=== PATIENT | male | born 1975 | race Caucasian/White ===

== ENCOUNTER 2017-05-10 07:15 | Emergency (ER) | payer OTHER ==
[2017-05-10 07:29] VITALS: BP 122/66
--- NOTE | 2017-05-10 07:47 | UC ---
FLU HPI - HPI Summary HPI Summary: ONSET LAST NIGHT OF CHILLS, SUBJECTIVE FEVER, ACHINESS, MALAISE, MILD COUGH. NO FLU SHOT THIS SEASON. NO ST, EAR PAIN, N/V/D. MULTIPLE FAMILY MEMBERS WITH STREP. - History of Current Complaint Chief Complaint: UCGeneralIllness Stated Complaint: CHILLS, FEVER Time Seen by Provider: 05/10/17 07:32 Hx Obtained From: Patient Onset/Duration: Gradual Onset, Lasting Days - 1 day Pain Intensity: 0 Pain Scale Used: 0-10 Numeric Associated Signs & Symptoms: Positive: Fever, Myalgia, Cough, Headache - Allergy/Home Medications Allergies/Adverse Reactions: Allergies Allergy/AdvReac Type Severity Reaction Status Date / Time No Known Allergies Allergy Verified 08/04/15 14:13 PMH/Surg Hx/FS Hx/Imm Hx Previously Healthy: Yes - Surgical History Surgical History: Yes Surgery Procedure, Year, and Place: LEFT SHOULDER REPAIR 2006,-ACL RECONSTRUCTION RIGHT KNEE 08/2014,-TUBES CHILD - Family History Known Family History: Negative: Cardiac Disease, Hypertension, Diabetes - Social History Alcohol Use: Occasionally Alcohol Amount: 1 BEER A MONTH Substance Use Type: None Smoking Status (MU): Never Smoked Tobacco - Immunization History Most Recent Influenza Vaccination: NOT IN THE PAST FEW YEARS Most Recent Tetanus Shot: UTD Review of Systems Constitutional: Fever, Chills, Fatigue Respiratory: Cough Cardiovascular: Negative Gastrointestinal: Negative Musculoskeletal: Myalgia Neurological: Headache All Other Systems Reviewed And Are Negative: Yes Physical Exam Triage Information Reviewed: Yes Appearance: Well-Appearing, No Pain Distress, Well-Nourished Vital Signs: Initial Vital Signs Temp 97.6 F 05/10/17 07:23 Pulse 76 05/10/17 07:23 Resp 16 05/10/17 07:23 BP 122/66 05/10/17 07:23 Pulse Ox 99 05/10/17 07:23 Vital Signs Reviewed: Yes Eyes: Positive: Conjunctiva Clear ENT: Positive: Hearing grossly normal, Pharynx normal, TMs normal, Other - RIGHT EAC IMPACTED WITH CERUMEN Neck: Positive: Supple, Nontender, No Lymphadenopathy Respiratory Exam: Normal Cardiovascular Exam: Normal Abdomen Description: Positive: Soft Musculoskeletal: Positive: No Edema Neurological: Positive: Alert Psychological: Positive: Age Appropriate Behavior Skin: Negative: rashes Diagnostics - Laboratory Diagnostic Studies Completed/Ordered: RAPID STREP NEGATIVE. RAPID INFLUENZA NEGATIVE Flu Course/Dx - Course Course Of Treatment: CERUMEN SUCCESSFULLY CURETTED OUT OF RIGHT EAC BY MD - Differential Dx/Diagnosis Provider Diagnoses: 1. ACUTE URI. 2. RIGHT EAR CERUMEN IMPACTION Discharge - Discharge Plan Condition: Stable Disposition: HOME Patient Education Materials: Cerumen Impaction (ED), Upper Respiratory Infection (ED) Referrals: No Primary Care Phys,NOPCP [Primary Care Provider] - Additional Instructions: STREP TEST AND FLU TEST BOTH NEGATIVE. YOUR SYMPTOMS ARE LIKELY VIRALLY MEDIATED AND SHOULD RESOLVE ON THEIR OWN WITH TIME. REST, HYDRATE, OTC MEDS NEEDED. SEEK FOLLOW-UP IF YOU ARE NOT IMPROVING OVER THE NEXT 1-2 WEEKS. CALL THE NUMBER BELOW FOR ASSISTANCE IN ESTABLISHING WITH A PCP An additional resource available to assist in finding the appropriate physician for your health care needs is the [facility] ([facility]). You may contact them by calling [phone].
== END 2017-05-10 08:20 | disposition home or self-care (01) ==
LOC: UCEAST 07:15
DX: J06.9 Acute upper respiratory infection, unspecified (principal); H61.21 Impacted cerumen, right ear
CPT/HCPCS: 87502; 87651; 99211; G0463

== ENCOUNTER 2017-05-14 08:19 | Emergency (ER) | payer OTHER ==
[2017-05-14 08:34] VITALS: BP 116/77
--- NOTE | 2017-05-14 08:56 | UC ---
Respiratory Complaint HPI - History of Current Complaint Chief Complaint: UCGeneralIllness Stated Complaint: FEVER,COUGH Time Seen by Provider: 05/14/17 08:54 Pain Intensity: 2 - Allergies/Home Medications Allergies/Adverse Reactions: Allergies Allergy/AdvReac Type Severity Reaction Status Date / Time No Known Allergies Allergy Verified 05/14/17 08:26 Home Medications: Home Medications Ibuprofen [Ibuprofen 200 MG] 600 mg PO ONCE 05/14/17 [History Confirmed 05/14/17 ] PMH/Surg Hx/FS Hx/Imm Hx - Surgical History Surgical History: Yes Surgery Procedure, Year, and Place: LEFT SHOULDER REPAIR 2006,-ACL RECONSTRUCTION RIGHT KNEE 08/2014,-EUSTACIAN TUBES CHILD - Family History Known Family History: Negative: Cardiac Disease, Hypertension, Diabetes - Social History Alcohol Use: Occasionally Alcohol Amount: 1 BEER A MONTH Substance Use Type: None Smoking Status (MU): Never Smoked Tobacco - Immunization History Most Recent Influenza Vaccination: NOT IN THE PAST FEW YEARS Most Recent Tetanus Shot: UTD Physical Exam Vital Signs: Initial Vital Signs Temp 98.5 F 05/14/17 08:28 Pulse 73 05/14/17 08:28 Resp 18 05/14/17 08:28 BP 116/77 05/14/17 08:28 Pulse Ox 99 05/14/17 08:28 UC Diagnostic Evaluation - Laboratory O2 Sat by Pulse Oximetry: 99 Discharge - Discharge Plan Referrals: No Primary Care Phys,NOPCP [Primary Care Provider] -
--- NOTE | 2017-05-14 09:39 | RAD ---
INDICATION: Pneumonia. Cough and fever COMPARISON: Chest x-ray August 16, 2014 TECHNIQUE: PA and lateral dual-energy views were obtained. FINDINGS: Bones/Soft Tissues: There are no acute bony findings. Cardiomediastinal: The cardiomediastinal silhouette is normal. Lungs: There is a subtle opacity projecting over the right upper lobe. Suggest follow-up to document complete resolution. If this does not resolve on follow-up chest x-rays, suggest CT imaging the chest. Pleura: There are no pleural effusions. Other: None IMPRESSION: RIGHT UPPER LOBE OPACITY CONSISTENT WITH AN EARLY PNEUMONITIS IN THE APPROPRIATE CLINICAL SETTING. SUGGEST FOLLOW-UP, HOWEVER, TO DOCUMENT COMPLETE RESOLUTION AND EXCLUDE AN UNDERLYING ABNORMALITY..
== END 2017-05-14 10:37 | disposition home or self-care (01) ==
LOC: UCEAST 08:19
DX: R50.9 Fever, unspecified (principal)
CPT/HCPCS: 71046; 99212; G0463

== ENCOUNTER 2017-05-19 20:24 | Emergency (ER) | payer OTHER ==
[2017-05-19 21:17] VITALS: BP 120/75
[2017-05-19] MEDS ORDERED: Amoxicillin PO (*) 500 MG CAP PO ONE (22:30)
--- NOTE | 2017-05-19 22:31 | UC ---
Throat Pain/Nasal Dilan HPI - HPI Summary HPI Summary: History of pneumonia, on last dose of z-pack today who started having sore throat in the morning and now has pain and problems swallowing. Strept test was positive. States he feels recurrence of malaise and fatigue - History of Current Complaint Chief Complaint: UCGeneralIllness Stated Complaint: SWOLLEN NECK Time Seen by Provider: 05/19/17 22:11 Hx Obtained From: Patient Onset/Duration: Sudden Onset, Lasting Hours Severity: Moderate Pain Intensity: 0 Associated Signs & Symptoms: Positive: Dysphagia - Epiglottits Risk Factors Epiglottis Risk Factors: Negative - Allergies/Home Medications Allergies/Adverse Reactions: Allergies Allergy/AdvReac Type Severity Reaction Status Date / Time No Known Allergies Allergy Verified 05/19/17 21:11 Home Medications: Home Medications Azithromycin TAB* [Zithromax TAB (Z-HEYDI) 250 mg #6 tabs] 250 mg PO DAILY [History Confirmed 05/19/17] PMH/Surg Hx/FS Hx/Imm Hx Previously Healthy: Yes - Surgical History Surgical History: Yes Surgery Procedure, Year, and Place: LEFT SHOULDER REPAIR 2006,-ACL RECONSTRUCTION RIGHT KNEE 08/2014,-EUSTACIAN TUBES CHILD - Family History Known Family History: Negative: Cardiac Disease, Hypertension, Diabetes - Social History Alcohol Use: Occasionally Alcohol Amount: 1 BEER A MONTH Substance Use Type: None Smoking Status (MU): Never Smoked Tobacco - Immunization History Most Recent Influenza Vaccination: NOT IN THE PAST FEW YEARS Most Recent Tetanus Shot: UTD Review of Systems Constitutional: Negative ENT: Sore Throat All Other Systems Reviewed And Are Negative: Yes Physical Exam Triage Information Reviewed: Yes Appearance: Well-Appearing Vital Signs: Initial Vital Signs Temp 99.1 F 05/19/17 21:12 Pulse 52 05/19/17 21:12 Resp 16 05/19/17 21:12 BP 120/75 05/19/17 21:12 Pulse Ox 99 05/19/17 21:12 Vital Signs Reviewed: Yes Eyes: Positive: Conjunctiva Clear ENT: Positive: Pharyngeal erythema, TMs normal - TM with scaring s/p tympanostomy s/p tympanic perforation Dental Exam: Normal Neck exam: Normal Respiratory Exam: Normal Cardiovascular Exam: Normal Throat Pain/Nasal Course/Dx - Course Course Of Treatment: po fluids, start amoxil as prescribed and complete course of treatment. Probiotics - Differential Dx/Diagnosis Provider Diagnoses: streptococcal pharyngitis Discharge - Discharge Plan Condition: Stable Disposition: HOME Prescriptions: Amoxicillin PO (*) [Amoxicillin 875 MG (*)] 875 mg PO BID 10 Days #20 tab Patient Education Materials: Strep Throat (ED) Referrals: No Primary Care Phys,NOPCP [Primary Care Provider] -
[2017-05-20] MEDS ORDERED: Amoxicillin PO (*) 875 MG TAB PO ONE (22:23)
== END 2017-05-19 22:40 | disposition home or self-care (01) ==
LOC: UCEAST 20:24
DX: J02.0 Streptococcal pharyngitis (principal)
CPT/HCPCS: 87651; 99212; A9270-GY; G0463

== ENCOUNTER 2018-01-06 09:36 | Emergency (ER) | payer OTHER ==
--- NOTE | 2018-01-06 10:16 | ED ---
HPI Chest Pain - HPI Summary HPI Summary: A 42 y/o M presents to ED with c/o lower L-anterior chest pain radiating around to lateral L-side onset hours CLEAT THROWER. Pain is episodic and is currently resolved at bedside. He described it as a "strong restricting pain" around his lung. At its worst, the pain was rated 7 out of 10. Associated sx: dyspnea, lightheadedness. Aggravating factors: movement. He laid on the floor which did not alleviate the symptoms. 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 No history of DVT/PE. Non-smoker, no rec drugs, no ETOH. No recent illness, but this past winter he had PNA, strep and influenza simultaneously. - History of Current Complaint Chief Complaint: EDChestPainROMI Time Seen by Provider: 01/06/18 09:56 Hx Obtained From: Patient, Family/Press Secretary Onset/Duration: Started Hours Ago, Atraumatic, Resolved Timing: Intermittent Initial Severity: Moderate - 7 of 10 Current Severity: None Pain Intensity: 0 Pain Scale Used: 0-10 Numeric Chest Pain Location: Left Anterior Chest Pain Radiates: Yes Chest Pain Radiates To:: Other - L-side Character: Other: - "restriction" Aggravating Factor(s): Movement Alleviating Factor(s): Nothing Associated Signs and Symptoms: Positive: Lightheadedness, Other: - dyspnea - Allergy/Home Medications Allergies/Adverse Reactions: Allergies Allergy/AdvReac Type Severity Reaction Status Date / Time No Known Allergies Allergy Verified 01/06/18 09:50 PMH/Surg Hx/FS Hx/Imm Hx Previously Healthy: No Endocrine/Hematology History: Denies: Hx Diabetes Cardiovascular History: Denies: Hx Hypertension, Hx Pacemaker/ICD, Other Cardiovascular Problems/ Disorders Respiratory History: Denies: Hx Asthma History: Reports: Other Problems/Disorders - IGA nephropathy Sensory History: Denies: Hx Hearing Aid Psychiatric History: Denies: Hx Panic Disorder - Surgical History Surgery Procedure, Year, and Place: LEFT SHOULDER REPAIR 2006,-ACL RECONSTRUCTION RIGHT KNEE 08/2014,-EUSTACIAN TUBES CHILD Infectious Disease History: No Infectious Disease History: Denies: History Other Infectious Disease, Traveled Outside the [place] in Last 30 Days - Family History Known Family History: Negative: Cardiac Disease, Hypertension, Diabetes - Social History Occupation: Employed Full-time Lives: With Family Alcohol Use: Occasionally Alcohol Amount: 1 BEER A MONTH Substance Use Type: Reports: None Smoking Status (MU): Never Smoked Tobacco Review of Systems Positive: Chest Pain Positive: Other - pos: dyspnea Neurological: Other - pos: lightheadedness All Other Systems Reviewed And Are Negative: Yes Physical Exam - Summary Physical Exam Summary: GENERAL: Patient is a well-developed and nourished M who is lying comfortable in the stretcher. Patient is not in any acute respiratory distress. HEAD AND FACE: Normocephalic EYES: PERRLA, EOMI x 2. EARS: Hearing grossly intact. MOUTH: Oropharynx within normal limits. NECK: Supple, trachea is midline, no adenopathy, no JVD, no carotid bruit. CHEST: Symmetric, no tenderness at palpation LUNGS: Clear to auscultation bilaterally. No wheezing or crackles. While taking deep breaths, patient appears uncomfortable. CVS: Regular rate and rhythm, S1 and S2 present, no murmurs or gallops appreciated. ABDOMEN: Soft, non-tender. Bowel sounds are normal. No abdominal abnormal pulsations. EXTREMITIES: Full ROM in all major joints, no edema, no cyanosis or clubbing. NEURO: Alert and oriented x 3. No acute neurological deficits. Speech is normal and follows commands. SKIN: Dry and warm Triage Information Reviewed: Yes Vital Signs On Initial Exam: Initial Vitals Temp Pulse Resp BP Pulse Ox 97.5 F 57 16 143/68 99 01/06/18 09:46 01/06/18 09:46 01/06/18 09:46 01/06/18 09:46 01/06/18 09:46 Vital Signs Reviewed: Yes Diagnostics - Vital Signs Vital Signs Temp Pulse Resp BP Pulse Ox 01/06/18 10:07 100 01/06/18 10:00 56 13 130/90 99 01/06/18 09:56 57 99 01/06/18 09:46 97.5 F 57 16 143/68 99 - Laboratory Result Diagrams: 01/06/18 10:29 01/06/18 10:29 Lab Statement: Any lab studies that have been ordered have been reviewed, and results considered in the medical decision making process. - Radiology CXR Xray Interpretation: No Acute Changes - IMPRESSION: No radiographic evidence for acute cardiopulmonary abnormality on this portable chest x-ray. ED provider has reviewed this report. Radiology Interpretation Completed By: Radiologist - CT Chest/Thorax CTA CT Interpretation: No Acute Changes - IMPRESSION: No CT of evidence of pulmonary embolism or other acute thoracic abnormality. ED provider has reviewed this report. CT Interpretation Completed By: Radiologist - Ultrasound No standard instances Ultrasound Interpretation: No Acute Changes - Venous Doppler Study. No sonographic evidence of DVT. ED Physician has reviewed this report. Ultrasound Interpretation Completed By: Radiologist - EKG 1007 Cardiac Rate: Bradycardia - 54bpm EKG Rhythm: Sinus Bradycardia Re-Evaluation - Re-Evaluation 1 Re-Evaluation Time: 14:08 Comment: Discussing results with pt and plans to DC. Pt voiced understanding. Chest Pain Course/Dx - Course Course Of Treatment: A 42 y/o M presents to ED with c/o lower L-anterior chest pain radiating around to lateral L-side onset hours CLEAT THROWER. D-Dimer is 359. Cardiac /Respiratory workup is unremarkable including 2 sets of troponin, CTA chest to rule out PE and bilateral lower extremity Doppler to rule out DVT. Patient is low risk for ACS by HEART score. I discussed the results with patient and he reports better. He is hemodynamically stable and safe for discharge. Strict return precautions given and he will otherwise follow up with his PCP. - Diagnoses Provider Diagnoses: Chest pain, unspecified Discharge - Sign-Out/Discharge Documenting (check all that apply): Patient Departure - DC - Discharge Plan Condition: Stable Disposition: HOME Patient Education Materials: Chest Pain (ED) Referrals: No Primary Care Phys,NOPCP [Medical Doctor] - [facility] [place] [facility] [Outside] Seth Bess MD [Medical Doctor] - 2 Days Additional Instructions: Please return to the ED if you experience new or worsening symptoms. Follow up with Dr. Bess cardio, in two days. - Billing Disposition and Condition Condition: STABLE Disposition: Home - Attestation Statements Document Initiated by Scribe: Yes Documenting Scribe: Jada Reddy Provider For Whom Severo is Documenting (Include Credential): Dr. Sierra Prajapati MD Scribe Attestation: Jada Medley, [email or web address] for Dr. Sierra Prajapati MD on 01/06/18 at 1812. Scribe Documentation Reviewed: Yes Provider Attestation: The documentation as recorded by the scribJada santiago accurately reflects the service I personally performed and the decisions made by me, Dr. Sierra Prajapati MD
[2018-01-06] MEDS ORDERED: Ketorolac INJ* 60 MG/2 ML VIAL IM ONE (10:18)
[2018-01-06 10:40] LABS: ABS Basophils 0 10^3/ul (0-0.2); ABS Eosinophils 0 10^3/ul (0-0.6); ABS Lymphocytes 1.7 10^3/ul (1.0-4.8); ABS Monocytes 0.8 10^3/ul (0-0.8); ABS Neutrophils 6.4 10^3/ul (1.5-7.7); ABS Nucleated RBC 0 10^3/ul; Eosinophil % 0.1 % (0-6); Hematocrit 39 % (42-52); Hemoglobin 13.2 g/dl (14.0-18.0); Lymphocyte % 18.6 % (25-47); Mean Corpuscular HGB Conc 34 g/dl (31-36); Mean Corpuscular Hemoglobin 30 pg (27-31); Mean Corpuscular Volume 89 fL (80-94); Mean Platelet Volume 6.8 um3 (7.4-10.4); Nucleated Red Blood Cells % 0.1; Platelet Count 270 10^3/ul (150-450); Red Blood Count 4.36 10^6/ul (4.00-5.40); Red Cell Distribution Width 14 % (10.5-15); White Blood Count 8.9 10^3/ul (3.5-10.8)
[2018-01-06 10:48] LABS: INR 0.95 (0.77-1.02)
--- NOTE | 2018-01-06 10:57 | RAD ---
INDICATION: Chest pain COMPARISON: Most recent comparison chest x-rays dated May 14, 2017 TECHNIQUE: Single AP portable view of the chest was obtained. FINDINGS: Image quality is compromised due to the relative inferiority of a portable chest x-ray. The heart and mediastinum exhibit normal size and contour. The lungs are grossly clear. There is no evidence of a large pleural effusion. Visualized bones are normal for the patient's age. IMPRESSION: No radiographic evidence for acute cardiopulmonary abnormality on this portable chest x-ray.
[2018-01-06 11:00] LABS: EGFR Non-African American 85.3 (>60)
[2018-01-06] MEDS ORDERED: Ketorolac INJ* 30 MG/ML 1 ML VIAL IV PUSH ONE (11:22)
[2018-01-06] MEDS ORDERED: Iohexol 350* (CONTRAST) 500 ML MDV IV ONE (11:40)
--- NOTE | 2018-01-06 12:58 | RAD ---
INDICATION: Shortness of breath and elevated d-dimer COMPARISON: None TECHNIQUE: Axial source images were acquired following the administration of 72 mL Omnipaque [address] angiographic technique. Coronal and sagittal reconstructed images were constructed and reviewed. FINDINGS: There there are no filling defects in the pulmonary arteries to indicate acute pulmonary embolic disease. There are no focal infiltrates or effusions. There are no pulmonary parenchymal masses. The heart is normal in size. There is no evidence of pericardial effusion. There is no evidence of aortic aneurysm or dissection. There is no mediastinal, hilar, or axillary lymphadenopathy. The visualized osseous structures appear normal. Limited views of the upper abdomen show no abnormalities. IMPRESSION: No CT of evidence of pulmonary embolism or other acute thoracic abnormality.
--- NOTE | 2018-01-06 13:33 | RAD ---
HISTORY: Elevated d-dimer TECHNIQUE: Multiple transverse and longitudinal ultrasound images were obtained of the veins of the bilateral lower extremities using grayscale, color Doppler, and spectral Doppler imaging with and without compression and with augmentation. FINDINGS: VEINS: The common femoral vein, deep femoral vein, femoral vein and popliteal vein are compressible throughout their course, with normal flow on color Doppler imaging and normal response to augmentation on spectral Doppler imaging. SOFT TISSUES: Grossly normal. No large popliteal fossa cyst was identified. IMPRESSION: No sonographic evidence of deep vein thrombosis.
[2018-01-06 13:58] VITALS: BP 138/74
== END 2018-01-06 14:26 | disposition home or self-care (01) ==
LOC: ED 09:36
DX: R07.89 Other chest pain (principal); R00.1 Bradycardia, unspecified
CPT/HCPCS: 36415; 71045; 71275; 80053; 83605; 84484; 85025; 85379; 85610; 85730; 93005; 93970; 96372; 96374; 99283; J1885; Q9967